=== PATIENT | male | born 1980 | race Caucasian/White ===

== ENCOUNTER 2024-03-18 08:48 | Outpatient (CLI) | payer BC, SELFPAY ==
--- NOTE | ~2024-03-18 | XR_ITS ---
XR wrist RT 2V Ordering provider: Yue Ruiz, ISHA History: . No injury, bilateral 5th finger numbness for a couple years . Comparison: January 20, 2009 FINDINGS: BONES: No acute fracture or dislocation. No definite scaphoid fracture. JOINT SPACES: Normal. SOFT TISSUES: Normal. IMPRESSION: No acute osseous abnormality right wrist. Reviewed, dictated and finalized at location A.
--- NOTE | ~2024-03-18 | XR_ITS ---
EXAMINATION: XR wrist LT 2V DATE: 03/18/2024 09:00 INDICATION: Chronic numbness at the fifth digit TECHNIQUE: Posteroanterior and lateral views of the left wrist were obtained. COMPARISON: none FINDINGS: Alignment is normal. No fracture. Joint spaces are normal. Soft tissues are unremarkable. IMPRESSION: 1. Negative left wrist radiographs. Reviewed, dictated and finalized at location B.
== END 2024-03-18 08:49 ==
PROVIDERS: PCP Physician Assistant; Visit Provider Physician Assistant
DX: M25.531 Pain in right wrist (principal); M25.532 Pain in left wrist
CPT/HCPCS: 73100